=== PATIENT | female | born 1950 | race Caucasian/White ===

== ENCOUNTER → 2016-03-25 | Outpatient (CLI) | payer OTHER ==
--- NOTE | 2016-03-25 15:37 | DIAGNOSTIC IMAGING REPORT ---
PROCEDURE: MG BILATERAL SCREENING W/CAD INDICATION: Screening. History of ovarian carcinoma. Family history breast carcinoma (mother). TECHNIQUE: Bilateral CC and MLO digital views. COMPARISON: Compared to 05/17/2013, 05/03/2012, FINDINGS: Computer-aided detection applied. Moderately dense with scattered dystrophic calcifications. No change. IMPRESSION: 1. Negative mammogram. RESULT CODE: 1- Negative. A. A negative report should not delay biopsy if a dominant or clinically suspicious mass is present. 10-15% of cancers are not identified by x-ray. B. A negative report may reinforce clinical impression. C. Adenosis and dense breasts may obscure an underlying neoplasm. D. False positive reports average 6-10%. E.. A yearly screening mammogram is recommended. A reminder letter will be scheduled.
== END ==
LOC: MAM SRH 14:24
DX: Z12.31 Encounter for screening mammogram for malignant neoplasm of breast (principal); Z80.3 Family history of malignant neoplasm of breast

== ENCOUNTER 2016-04-07 12:49 | Outpatient (CLI) | payer OTHER ==
--- NOTE | 2016-04-14 10:00 | DIAGNOSTIC IMAGING REPORT ---
REFERRING PHYSICIAN/PROVIDER: Olivier Viramontes MD [employer]SULTING [employer] MERCHANDISER: Vasiliy Rashid MD PROCEDURE: M-mode 2D echocardiography with spectral and color flow Doppler TECHNICAL QUALITY: Fair INDICATION: AORTIC VALVE STENOSIS RHYTHM DURING PROCEDURE: Normal sinus rhythm INTERPRETATIONS: LEFT VENTRICLE: Left ventricle is normal in size wall thickness and systolic function without any focal wall motion abnormality. The is submitted ejection fraction is 65%. There is normal diastolic function noted. RIGHT VENTRICLE: The right ventricle is normal in size and function. ATRIA: Both atria are normal in size. The interatrial septum is intact with no evidence for an atrial septal defect. MITRAL VALVE: Mitral valve is grossly normal. There is trace mitral regurgitation noted. AORTIC VALVE: The aortic valve is calcified and appears trileaflet. There is evidence of mild aortic stenosis noted with an aortic valve area of 1.5 cm2 peak gradient of 19 mmHg and a mean gradient of 9 mmHg with a maximal velocity of 2.1 meters per second. There is no significant aortic regurgitation noted. TRICUSPID VALVE: Tricuspid valve leaflets are thin and pliable. There appears to be mild tricuspid regurgitation noted. PULMONIC VALVE: The pulmonic valve is not well visualized. There is no significant pulmonic regurgitation noted. GREAT VESSELS: The aortic root is normal in size. PERICARDIUM: There is no evidence of a pericardial effusion IMPRESSION: 1. Normal biventricular size and systolic function 2. Normal biatrial size 3. Mild aortic stenosis 4. Normal estimated right ventricular systolic pressure
== END 2016-04-07 23:00 ==
LOC: US SRH 12:49
DX: I35.0 Nonrheumatic aortic (valve) stenosis (principal)

== ENCOUNTER 2016-07-26 17:10 | Outpatient (CLI) | payer OTHER ==
[2016-08-01] MEDS ORDERED: ATIVAN1 MG PO (11:11)
[2016-08-01] MEDS ORDERED: AVASTIN IV (11:13)
[2016-08-01] MEDS ORDERED: CENTRUM SILVER PO (11:14)
[2016-08-01] MEDS ORDERED: COLACE100 MG PO (11:15)
[2016-08-01] MEDS ORDERED: LIPITOR10 MG PO (11:16)
[2016-08-01] MEDS ORDERED: MAGNESIUM400 MG PO (11:17)
== END 2016-07-26 23:00 | disposition home or self-care (01) ==
LOC: LABML S 17:10
DX: K92.1 Melena (principal)
CPT/HCPCS: 90100; 94060